=== PATIENT | female | born 1965 ===

== ENCOUNTER 2020-10-19 08:57 | Outpatient (REF) | payer BC, SELFPAY ==
--- NOTE | 2020-10-19 10:35 | MHC.AU.P13 ---
Adult Audiological Evaluation Date of Visit: 10/19/20 Reason for Appointment: Audiological evaluation due to decrease in hearing. Ms. Cottrell notes that she often asks for repetition and her family has noted that she doesn't hear well. 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, noisy lab equipment Medical History: Medical History: Unremarkable Medical History Allergies: Amoxicillin and sulfa drugs Otoscopy: Right Ear: Unremarkable Left Ear: Unremarkable Tympanometry: Right Ear: Hypercompliant Middle Ear System (Type Ad) Left Ear: Normal Middle Ear System (Type A) Hearing Evaluation: Transducer(s) Used: Insert Earphones, Bone Conduction Method: Conventional Audiometry Stimuli Used: Pure Tones Right Ear: Description of Hearing: Moderate sensorineural hearing loss from 250-1000 Hz, rising to a mild sensorineural hearing loss at 1500 Hz, and normal hearing from 0981-6508 Hz. Left Ear: Description of Hearing: Moderately severe sensorineural hearing loss from 250-500 Hz, rising to a moderate sensorineural hearing loss at 750-1000 Hz, normal hearing from 8191-9202 Hz, dipping to a mild sensorineural hearing loss at 4000 Hz, and rising to normal hearing from 0642-6356 Hz. Speech Recognition Threshold (SRT): Method Used: Monitored Live Voice Stimuli Used: Spondee Words Right Ear: 20 dBHL Left Ear: 20 dBHL Word Discrimination: Method: Recorded Lists Word Lists Used: NU-6 Right Ear: 92% at 60 dBHL Left Ear: 92% at 60 dBHL Recommendations: Recommendations: Audiological re-evaluation in one year. Trial with amplification is recommended. Referral to Ear, Nose, and Throat is recommended. Recommendations (Other): Discussed hearing aid options and process with Ms. Cottrell. She will consider her options and contact her insurance regarding potential hearing aid benefits. She was welcomed to return to further discuss options if she decides she would like to pursue hearing aids through our clinic. Diagnosis: Primary Diagnosis: H90.3 Bilateral Sensorineural Hearing Loss Services Performed: Services Performed: Comprehensive Audiological Evaluation (CPT 25270) Tympanometry (CPT 90373) Signature: Provider: Jessika Vang, CCC-A
== END 2020-10-19 08:58 | disposition home or self-care (01) ==
LOC: HO.SH 08:57
PROVIDERS: Visit Provider Internal Medicine
DX: H90.3 Sensorineural hearing loss, bilateral (principal)
CPT/HCPCS: 92557; 92567